=== PATIENT | male | born 1965 | race Caucasian/White ===

== ENCOUNTER 2022-07-18 11:47 | Emergency (ER) | payer OTHER, SELFPAY ==
[2022-07-18 12:15] VITALS: BP 163/94; PULSE 82; RESP 18; TEMP 36.6; O2SAT 99
--- NOTE | 2022-07-18 13:11 | ED.GENADULT ---
HPI - General Adult General Chief complaint: Ear Stated complaint: Bilateral Ear Irritation History of Present Illness HPI narrative: 57 y/o male. PMHx HTN, GERD. Presents to [facility] today with acute complaints of RT ear pain, worsening > the past 48 hours. Client describes a 'muffled' hearing, as well as 'throbbing' pain type sensation. -No falls or auditory trauma. -No dizziness. -No hearing loss or tinnitus. -No fevers, rash, or lesions. He does report to have noticed a bit of yellow discharge, and tells me he often suffers from increased ear wax accumulation. Mild reliefs w/home remedies. No additional acute c/o upon PE. Related Data Home Medications Medication Instructions Recorded Confirmed aspirin 325 mg tablet 325 mg PO DAILY 12/01/19 07/18/22 Allergies Allergy/AdvReac Type Severity Reaction Status Date / Time colchicine AdvReac Intermediate Diarrhea Verified 07/18/22 12:00 Review of Systems Review of Systems: CONSTITUTIONAL: Denies fever, chills, sweats. EYES: Denies visual changes, redness, discharge. ENT: Denies rhinorrhea, congestion, sore throat. + Otalgia RT. CARDIOVASCULAR: Denies chest pain, palpitations, edema. RESPIRATORY: Denies dyspnea, wheezing, cough Remainder of ROS has been reviewed: Negative. [facility] Past Medical History Medical History Arthritis Clawtoe, acquired History of DVT (deep vein thrombosis) Metatarsalgia of right foot Seasonal allergies Surgical History Surgical History History of foot surgery Ross's neuroma x3, done by 3 different providers Family History Family History Mother Hypertension Family history of diabetes mellitus in first degree relative Sibling Patient's sister is in good health Father Family history of lung cancer Patient's father is Other Arthritis Diabetes mellitus Social History Social History Smoking status: Never smoker Second hand tobacco smoke exposure: No Alcohol intake: current Exam Narrative: GENERAL: This is a well-nourished, well-developed adult, in no apparent distress. HEAD: normocephalic, atraumatic. EYES: Sclera clear/white. EARS: External ears normal, RT auditory canal is erythematous, mild cerumen accumulation, no impaction. RT TM bulging. Positive tragus maneuver RT. lt clear and without drainage, TM normal. NOSE: External nose normal. Positive Rhinorrhea, no obstruction, nares patent. THROAT: Mucous membranes moist, posterior pharynx clear. No exudates. NECK: Neck supple, non-tender without lymphadenopathy, masses or thyromegaly. CARDIOVASCULAR: Regular rate and rhythm. RESPIRATORY: Clear to auscultation. Breath sounds equal bilaterally. GASTROINTESTINAL: Abdomen soft. SKIN: warm, intact with no suspicious lesions or rash. NEURO: Alert, active, and age appropriate. Course Course Level of Care: Express Care Visit Vital Signs Vital signs: Vital Signs Temperature 36.6 C 07/18/22 12:15 Pulse Rate 82 07/18/22 12:15 Respiratory Rate 18 07/18/22 12:15 Blood Pressure 163/94 H 07/18/22 12:15 Pulse Oximetry 99 07/18/22 12:15 Oxygen Delivery Room Air 07/18/22 12:15 Temperature 36.6 C 07/18/22 12:15 Pulse Rate 82 07/18/22 12:15 Respiratory Rate 18 07/18/22 12:15 Blood Pressure 163/94 H 07/18/22 12:15 Pulse Oximetry 99 07/18/22 12:15 Oxygen Delivery Room Air 07/18/22 12:15 Procedures Ear Wax Removal Right Ear: Ear Wax Removal Date: 07/18/22 Ear Wax Removal Time: 13:00 Cerumenolytic Used: other (NS ) Results: Re-examined: cerumen removed completely TM Examination: TM(s) erythematous (RT, fully visualized post proceudre, intact) Ear Canal Exa
== END 2022-07-18 12:35 | disposition home or self-care (01) ==
PROVIDERS: Emergency Provider Nurse Practitioner Adult Health; PCP Internal Medicine
DX: H66.91 Otitis media, unspecified, right ear (principal); H61.21 Impacted cerumen, right ear; M19.90 Unspecified osteoarthritis, unspecified site; Z86.718 Personal history of other venous thrombosis and embolism; Z79.82 Long term (current) use of aspirin
CPT/HCPCS: 69209; 99213; G0463

== ENCOUNTER 2022-09-19 16:33 | Outpatient (CLI) | payer OTHER, SELFPAY ==
--- NOTE | ~2022-09-19 | MR_ITS ---
EXAMINATION: MR brain IAC wo/w con DATE: 09/19/2022 17:59 INDICATION: Bilateral sensorineural hearing loss. TECHNIQUE: Magnetic resonance imaging (MRI) of the brain, brainstem, and internal auditory canals was performed without and with 17 mL MultiHance intravenous contrast. COMPARISON: None. FINDINGS: There is an old lacunar infarct in right lentiform nucleus. There is no intracranial hemorr carlene, acute infarction, or abnormal intracranial mass lesion. The ventricles are normal in size. The paranasal sinuses are clear. The orbits are normal. The mastoid air cells are normal. The internal au ditory canals and inner and middle ears are normal. IMPRESSION: 1. 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 Reviewed, dictated and finalized at location A. ER [employer]
== END 2022-09-19 16:34 | disposition home or self-care (01) ==
PROVIDERS: PCP Internal Medicine; Visit Provider Otolaryngology
DX: H90.3 Sensorineural hearing loss, bilateral (principal); H93.13 Tinnitus, bilateral
CPT/HCPCS: 70553; A9577

== ENCOUNTER 2023-05-05 08:15 | Outpatient (CLI) | payer OTHER, SELFPAY | END 2023-05-05 08:16 | disposition home or self-care (01) | PROVIDERS: PCP Internal Medicine; Visit Provider Otolaryngology | DX: H93.19 Tinnitus, unspecified ear (principal); H90.3 Sensorineural hearing loss, bilateral | CPT/HCPCS: 92557; 92567 ==

== ENCOUNTER 2023-08-12 05:16 | Emergency (ER) | payer OTHER, SELFPAY ==
--- NOTE | ~2023-08-12 | XR_ITS ---
Right Shoulder Technique: AP and scapular Y views were obtained. Clinical History: Pain Findings: No fracture or dislocation is seen. Osseous alignment is anatomic. The glenohumeral and acr omioclavicular joint spaces are preserved. Soft tissues are unremarkable. Impression: Unremarkable right shoulder radiographs. Reviewed, dictated and finalized at [facility]. [employer] WORK[employer] Impression: Unremarkable right shoulder radiographs.
[2023-08-12 05:19] VITALS: BP 161/98; PULSE 85; RESP 15; TEMP 36.5; O2SAT 100
--- NOTE | 2023-08-12 05:41 | ED.GENADULT ---
HPI - General Adult General Chief complaint: Extremity Injury, Upper Stated complaint: right shoulder injury Time Seen by Provider: 08/12/23 05:28 History of Present Illness HPI narrative: This is a 58-year-old male presenting ED with chief complaint of right shoulder pain. On Friday the patient was trying to walk up the stairs when he tripped and landed on his right shoulder. Since then he has been having pain in the triceps area and posterior deltoid. It is worse with movement. He has taken Motrin with minimal relief. Patient came in the hospital today because it continues to bother him. Patient denies any other injuries during the fall. Related Data Home Medications Medication Instructions Recorded Confirmed aspirin 325 mg tablet 325 mg PO DAILY 12/01/19 05/07/23 Allergies Allergy/AdvReac Type Severity Reaction Status Date / Time colchicine AdvReac Intermediate Diarrhea Verified 08/12/23 05:28 [facility] Past Medical History Medical History Arthritis Clawtoe, acquired History of DVT (deep vein thrombosis) Metatarsalgia of right foot Seasonal allergies Surgical History Surgical History History of foot surgery Ross's neuroma x3, done by 3 different providers Family History Family History Mother Hypertension Family history of diabetes mellitus in first degree relative Sibling Patient's sister is in good health Father Family history of lung cancer Patient's father is Other Arthritis Diabetes mellitus Social History Social History Smoking status: Never smoker Second hand tobacco smoke exposure: No Alcohol intake: current Substance use: unknown Lack of Transportation: No Lack of Food: Never True Current Housing: I Have Housing Concerned About Future Housing: No Difficulty Paying Gas/Electric Bills: No Difficulty Paying for Meds: No Currently Unemployed: No Education: High School Diploma/GED Difficulty w/ Childcare or Family Care: No Exam Narrative: APPEARANCE: No apparent distress. Head: atraumatic. EYES: EOMI, NOSE: Atraumatic NECK: Trachea midline RESPIRATORY: No increased rate of breathing CARDIOVASCULAR: RRR, ABDOMINAL: Non-distended MUSCULOSKELETAl: Focal exam of the right upper extremity revealed no obvious deformities or overlying skin changes. He does have tenderness to palpation over the right scapula and posterior deltoid. Pulses are +2 in the radial and ulnar distribution. Cremator strength, okay sign and dorsiflexion of the wrist are intact. NEURO: Alert. Moving 4/4 extremities SKIN:: Warm, dry. Normal color PSYCHIATRIC: Normal affect Course Vital Signs Vital signs: Vital Signs Temperature 97.7 F 08/12/23 05:19 Pulse Rate 85 08/12/23 05:19 Respiratory Rate 15 08/12/23 05:19 Blood Pressure 161/98 H 08/12/23 05:19 Pulse Oximetry 100 08/12/23 05:19 Oxygen Delivery Room Air 08/12/23 05:19 Temperature 97.7 F 08/12/23 05:19 Pulse Rate 85 08/12/23 05:19 Respiratory Rate 15 08/12/23 05:19 Blood Pressure 161/98 H 08/12/23 05:19 Pulse Oximetry 100 08/12/23 05:19 Oxygen Delivery Room Air 08/12/23 05:19 Medical Decision Making [facility] Narrative Medical decision making narrative: -Course: 58-year-old male presenting with shoulder pain after a fall. X-ray negative for osseus. Patient treated symptomatically discharged with primary care follow-up. 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
[2023-08-12] MEDS: ACETAMINOPHEN 500 MG TABLET 1000 MG PO (06:08)
[2023-08-12] MEDS: LIDOCAINE 5% PATCH 1 PATCH TRANSDERM (06:08)
[2023-08-12] MEDS: methocarbamoL 750 MG TABLET 1500 MG PO (06:08)
[2023-08-12] MEDS: KETOROLAC 30 MG/ML VIAL (*BKC) 15 MG IM (06:09)
[2023-08-12 06:30] VITALS: BP 158/89; PULSE 82; RESP 16; O2SAT 100
== END 2023-08-12 06:32 | disposition home or self-care (01) ==
PROVIDERS: Emergency Provider Emergency Medicine; PCP Internal Medicine
DX: M25.511 Pain in right shoulder (principal); Z86.718 Personal history of other venous thrombosis and embolism
CPT/HCPCS: 73030; 96372; 99283; A9270; J1885

== ENCOUNTER 2023-08-13 12:20 | Emergency (ER) | payer OTHER, SELFPAY ==
[2023-08-13 12:38] VITALS: BP 149/79; PULSE 96; RESP 18; TEMP 36.5; O2SAT 99
--- NOTE | 2023-08-13 13:36 | ED.UPPEXIN ---
HPI - Extremity Injury (Upper) General Chief Complaint: Extremity Injury, Upper Stated Complaint: right shoulder pain Time Seen by Provider: 08/13/23 13:17 History of Present Illness HPI narrative: 58-year-old male returns to the emergency room for continued right shoulder pain. He was seen yesterday morning following a fall on Friday night. Patient states that he was walking up the stairs, and tripped landing on his right shoulder. Patient states has been experiencing pain on the posterior surface of his shoulder that extends into his bicep. Pain is worse with movement. Reports improvement with his pain when his arm is immobile and he is taking the muscle relaxers. Related Data Home Medications Medication Instructions Recorded Confirmed aspirin 325 mg tablet 325 mg PO DAILY 12/01/19 05/07/23 Allergies Allergy/AdvReac Type Severity Reaction Status Date / Time colchicine AdvReac Intermediate Diarrhea Verified 08/12/23 05:28 Review of Systems Review of Systems: CONSTITUTIONAL: Denies fever, chills, or sweats. EYES: Denies visual changes, redness, or discharge. ENT: Denies rhinorrhea, congestion, sore throat, or otalgia. CARDIOVASCULAR: Denies chest pain, palpitations, or edema. RESPIRATORY: Denies cough or dyspnea. GASTROINTESTINAL: Denies abdominal pain, nausea, vomiting, or diarrhea. GENITOURINARY: Denies dysuria or hematuria. SKIN: Denies rash or itching. MUSCULOSKELETAL: Reports right shoulder pain NEUROLOGIC: Denies headache, numbness, dizziness, or weakness. PSYCHIATRIC: Denies anxiety or depression. [facility] Past Medical History Medical History Arthritis Clawtoe, acquired History of DVT (deep vein thrombosis) Metatarsalgia of right foot Seasonal allergies Surgical History Surgical History History of foot surgery Ross's neuroma x3, done by 3 different providers Family History Family History Mother Hypertension Family history of diabetes mellitus in first degree relative Sibling Patient's sister is in good health Father Family history of lung cancer Patient's father is Other Arthritis Diabetes mellitus Social History Social History Smoking status: Never smoker Second hand tobacco smoke exposure: No Alcohol intake: current Substance use: unknown Lack of Transportation: No Lack of Food: Never True Current Housing: I Have Housing Concerned About Future Housing: No Difficulty Paying Gas/Electric Bills: No Difficulty Paying for Meds: No Currently Unemployed: No Education: High School Diploma/GED Difficulty w/ Childcare or Family Care: No Exam Narrative: GENERAL: Well-appearing, well-nourished, no physical limitations, and in no acute distress. HEAD: Normocephalic, atraumatic. EYES: Conjunctivae normal, PERRLA and EOMI. CHEST: Clear to auscultation. No respiratory distress. No wheezes rales or rhonchi. HEART: Regular rate and rhythm. No murmur heard. Normal peripheral pulses.. EXTREMITIES: Rt Shoulder: No obvious bony abnormalities, ecchymosis noted. No soft tissue swelling. Tenderness over the right scapula, right deltoid, AC joint and right bicep. Positive drop arm test and empty can test. Neurovascular is intact distally SKIN: Warm, dry, no rash. No noted wounds NEURO: No focal deficits. Alert and oriented x3. MAEW. CN's II-XI intact bilaterally, normal gait PSYCH: Cooperative. Normal mood and affect. Course Vital Signs Vital signs: Vital Signs Temperature 36.5 C 08/13/23 12:38 Pulse Rate 96 08/13/23 12:38 Respiratory Rate 18 08/13/23 12:38 Blood Pressure 149/79 H 08/13/23 12:38 Pulse Oximetry 99 08/13/23 12:38 Temperature 36.5 C 08/13/23 12:38 Pulse Rate 96 08/13/23 12:
[2023-08-13] MEDS: KETOROLAC (*BKC) 60 MG/2 ML VIAL IM (13:52)
== END 2023-08-13 14:02 | disposition home or self-care (01) ==
PROVIDERS: Emergency Provider Nurse Practitioner Family; PCP Internal Medicine
DX: S49.91XA Unspecified injury of right shoulder and upper arm, initial encounter (principal); M19.90 Unspecified osteoarthritis, unspecified site; Z86.718 Personal history of other venous thrombosis and embolism; W10.9XXA Fall (on) (from) unspecified stairs and steps, initial encounter
CPT/HCPCS: 96372; 99283; A4565; J1885

== ENCOUNTER 2023-10-15 15:08 | Outpatient (CLI) | payer OTHER, SELFPAY ==
--- NOTE | 2023-10-15 15:29 | ECG_ITS ---
Measurements Intervals [place] Rate: 87 P: 19 [place]: 151 QRS: 2 QRSD: 104 T: 3 QT: 344 QTc: 415 Interpretive Statements SINUS RHYTHM POOR R WAVE PROGRESSION, ANTERIOR LEADS INFERIOR INFARCT, AGE INDETERMINATE ABNORMAL ECG COMPARED TO ECG 08/05/2019 14:23:28 MYOCARDIAL INFARCT FINDING NOW PRESENT Electronically Signed On 10-15-2023 16:11:57 PERSONALIZATION SPECIALIST by Charles Thorpe D.O.
== END 2023-10-15 15:09 | disposition home or self-care (01) ==
LOC: ANHSURGERY 15:15
PROVIDERS: PCP Internal Medicine; Visit Provider Otolaryngology
DX: Z01.818 Encounter for other preprocedural examination (principal); R94.31 Abnormal electrocardiogram [ECG] [EKG]; R93.1 Abnormal findings on diagnostic imaging of heart and coronary circulation; I10 Essential (primary) hypertension
CPT/HCPCS: 93005

== ENCOUNTER 2023-10-21 00:12 | Day surgery (SDC) | payer OTHER, SELFPAY ==
[2023-10-13 10:17] VITALS: BMI 32.1
--- NOTE | 2023-10-13 10:33 | PC.NURSE ---
Report to the Outpatient Waiting Room, entrance under the green pavilion located off [facility], at 1230 on 10/21/23. Planned Procedure Time: 1430. Time changes happen often and if your time is changed the preop area will call you the afternoon before. - You and your visitor will be asked to self-screen and do not enter if you have any COVID symptoms. - A mask is optional within the hospital at this time. Patients may have clear liquids (water, carbonated beverages, clear teas, apple juice) until 3 hours prior to surgery with a maximum of 20 ounces. - No food from midnight until time of surgery Take the following medications with a SIP of water the morning of surgery: Pantoprazole DO NOT STOP ANY OF YOUR OTHER PRESCRIPTION MEDICATIONS PRIOR TO SURGERY ?EXCEPT THE FOLLOWING Medications to discontinue per physician CONTACT DR. ROBBINS/DR. SHARP REGARDING IF AND WHEN TO STOP ASPIRIN Date to take last dose PER MD INSTRUCTION Please no make-up, nail citizen of [place], hairspray, perfume, deodorant, or body powder the day of surgery. No jewelry (including any body piercings) or valuables the day of surgery, leave them at home. Please take a shower or bath the night before, or the morning of, surgery with an antibacterial soap. Wear comfortable, loose fitting clothing. - Jewelry must be removed prior to entering the operating room. Rings and piercings that are not removed may be cut off. - The hospital will not accept responsibility for valuables. - Please leave all valuables, including medications, at home the day of surgery. If you are going home after surgery, a licensed cdl bulk driver must drive you home. - NO public transportation without another adult if you receive anesthesia. - We recommend that an adult stay with you for 24 hours following discharge. - We also recommend that you do not drive, make important decision, drink alcoholic beverages, or take any drugs that were not prescribed by your health care provider for at least 24 hours after your discharge time. Follow any additional instructions given to you from your surgeon. If you or anyone in your household have experienced Covid symptoms in the past week, please notify your surgeon or the nurse liaison at the phone number below for possible testing. Telephone instructions given to patient and asked if any additional questions and then verbalized understanding. Patient advised to call surgeon office or pre surgery nurse liaison [phone] if any additional questions.
--- NOTE | 2023-10-19 14:58 | PM.IMHP ---
H&P: HPI History of Present Illness Date/Time: 10/19/23 14:58 Chief Complaint: Left pigmented ear canal lesion Narrative: Planned surgical procedure Review of Systems Review of Systems: All systems reviewed & are unremarkable except as noted in HPI and below PMFSH Past Medical History Medical History Arthritis Clawtoe, acquired History of DVT (deep vein thrombosis) Metatarsalgia of right foot Seasonal allergies Strain of rotator cuff Surgical History Surgical History History of foot surgery Ross's neuroma x3, done by 3 different providers Family History Family History Mother Hypertension Family history of diabetes mellitus in first degree relative Sibling Patient's sister is in good health Father Family history of lung cancer Patient's father is Other Arthritis Diabetes mellitus Social History Social History Smoking status: Never smoker Second hand tobacco smoke exposure: No Alcohol intake: never Substance use: never Lack of Transportation: No Lack of Food: Never True Current Housing: I Have Housing Concerned About Future Housing: No Difficulty Paying Gas/Electric Bills: No Difficulty Paying for Meds: No Currently Unemployed: No Education: High School Diploma/GED Difficulty w/ Childcare or Family Care: No Living arrangements: alone Spiritual care concerns: No Meds Home Medications and Allergies Home Medications Medication Instructions Recorded Confirmed Type sildenafil 100 mg tablet 100 mg PO DAILY PRN sexual 09/01/22 10/13/23 Rx activity #20 tabs pantoprazole 40 mg tablet,delayed 40 mg PO QAM #90 tabs 05/17/23 10/13/23 Rx release amitriptyline 50 mg tablet 50 mg PO QHS PRN insomnia #90 tabs 06/09/23 10/13/23 Rx lisinopril 40 mg tablet 40 mg PO DAILY #90 tabs 07/20/23 10/13/23 Rx aspirin 81 mg tablet,delayed 81 mg PO DAILY 08/18/23 10/13/23 History release (Adult Aspirin Regimen) mupirocin 2 % topical ointment 1 applic topical BID #22 grams 09/22/23 10/13/23 Rx Allergies Allergy/AdvReac Type Severity Reaction Status Date / Time colchicine AdvReac Intermediate Diarrhea Verified 10/13/23 10:11 Exam Narrative: Left pigmented ear canal lesion Assessment and Plan Assessment and plan (1) Lesion of ear canal: Code(s): H61.899 - Other specified disorders of external ear, unspecified ear Status: Acute Assessment and Plan: OR excisional biopsy of left ear canal lesion ear/exam under anesthesia.? LMA okay.? Risks were discussed include bleeding infection damage to surrounding structures need for further procedures.? Failure to obtain diagnosis.? Patient voiced understanding of these risks and agreed. Possible post operative infection, bleeding, stenosis of the ear canal and need for further procedure/referral to neurootologist if malignant pathology.
--- NOTE | 2023-10-20 15:27 | WPDANESEPPF ---
Anes - Initial Pre Proc Eval Procedure: Operation Date: 10/21/23 08:30 Proposed Procedures p Left Ear Examination with Biopsy of Ear Canal - Angel Santillan MD Date/Time: 10/20/23 15:27 Surgeon: Angel Santillan MD Pre Op Diagnosis: left ear canal lesion Patient Data Age: 58 Gender: M Height: 1.63 m Weight: 84.82 kg Allergies Allergy/AdvReac Type Severity Reaction Status Date / Time colchicine AdvReac Intermediate Diarrhea Verified 10/21/23 07:30 Home Medications Medication Instructions Recorded Confirmed Type sildenafil 100 mg tablet 100 mg PO DAILY PRN sexual 09/01/22 10/21/23 Rx activity #20 tabs pantoprazole 40 mg tablet,delayed 40 mg PO QAM #90 tabs 05/17/23 10/21/23 Rx release amitriptyline 50 mg tablet 50 mg PO QHS PRN insomnia #90 tabs 06/09/23 10/21/23 Rx lisinopril 40 mg tablet 40 mg PO DAILY #90 tabs 07/20/23 10/21/23 Rx aspirin 81 mg tablet,delayed 81 mg PO DAILY 08/18/23 10/21/23 History release (Adult Aspirin Regimen) mupirocin 2 % topical ointment 1 applic topical BID #22 grams 09/22/23 10/21/23 Rx Patient hx anesthesia problems: none Family hx anesthesia problems: none Results Review: All pre-operative results and documents have been reviewed as part of the pre-operative evaluation. [facility] Past Medical History Medical History (Updated 10/20/23 @ 15:27 by Amadou Gonzalez DO) Arthritis Clawtoe, acquired Esophageal reflux disease Essential (primary) hypertension History of DVT (deep vein thrombosis) Metatarsalgia of right foot Seasonal allergies Strain of rotator cuff Surgical History Surgical History History of foot surgery Ross's neuroma x3, done by 3 different providers Family History Family History Mother Hypertension Family history of diabetes mellitus in first degree relative Sibling Patient's sister is in good health Father Family history of lung cancer Patient's father is Other Arthritis Diabetes mellitus Social History Social History (Reviewed 12/18/23 @ 09:07 by Ashtyn Guan [facility]) Smoking status: Never smoker Second hand tobacco smoke exposure: No Alcohol intake: never Substance use: never Lack of Transportation: No Lack of Food: Never True Current Housing: I Have Housing Concerned About Future Housing: No Difficulty Paying Gas/Electric Bills: No Difficulty Paying for Meds: No Currently Unemployed: No Education: High School Diploma/GED Difficulty w/ Childcare or Family Care: No Living arrangements: alone Spiritual care concerns: No Anes - Eval Final PreProcedure Day of Procedure 10/20/23 15:27 Patient weight: overweight Heart: regular rate and rhythm Lungs: clear to auscultation Airway: Mallampati scale class II Neurological: alert and oriented Last oral intake: >/= 8 hours ASA classification: III Emergent: no Anesthetic plan: proceed Anesthesia type and monitoring: general LMA and standard monitoring Results Review: All pre-operative results and documents have been reviewed as part of the pre-operative evaluation. Informed Consent: The patient's anesthetic plan and its attendant risks and benefits were discussed with the patient/family/POA. Questions were solicited and answers provided to the satisfaction of the patient/family/POA.
[2023-10-21] VITALS (8 sets, daily range): BP systolic 94–132; BP diastolic 76–88; PULSE 64–88; RESP 15–20; TEMP 36.6–36.8; O2SAT 93–100
[2023-10-21] MEDS: LACTATED RINGERS 1,000 ML 30 ML IV CONT ×2 (07:15→09:35)
--- NOTE | 2023-10-21 08:43 | WPDHPUPDATE1 ---
History and Physical Update Update Date/Time: 10/21/23 08:43 History and Physical has been reviewed, including an updated exam of the patient. There are NO changes in the patient's condition. Risks, benefits, and alternatives have been discussed and questions answered. Patient agrees to proceed with procedure.
[2023-10-21] MEDS: ceFAZolin 2 GM/D5W 50 ML 2 GM/50 ML BAG IVPB (08:53)
[2023-10-21] MEDS: LIDO 1%/EPINEPHRINE 1:100,000 50 ML VIAL INFILTRATE (09:12)
[2023-10-21] MEDS: OXYMETAZOLINE HCL 0.05% NAS 15 ML BTL (*BKC) 1 SPRAY NASAL (09:19)
[2023-10-21] MEDS: NEOMYCIN/POLYMYXIN B/PRAMOXINE 15 GM CREAM 1 APPLIC TOPICAL (09:27)
[2023-10-21] MEDS: GELATIN SPONGE 12-7MM 1 EACH TOPICAL (09:29)
--- NOTE | 2023-10-21 09:33 | SUR.OPER ---
specimen sent with HONG Vidales and received in pathology by Lo
--- NOTE | 2023-10-21 09:53 | P.OP_ITS ---
Procedure Note - Detailed Date of Procedure 10/21/23 Pre-op Diagnosis left ear canal lesion Post-op Diagnosis Same Procedure Performed Right-sided ear exam under anesthesia anesthesia with excisional biopsy Surgeon Angel Santillan MD Anesthesia General Indications See above Findings pigmented lesion only a couple mm across by 2 x 3 excised with a rim of the pigment left should be a malignancy. Minimal bleeding. Description of Procedure Patient identified consent verified. Patient brought to the OR. Time-out performed. General anesthesia induced LMA secured. Patient prepped draped position procedure confirmed 2nd time-out performed. Ear examined pigmented lesion probably measuring 3 x 4 mm. This was injected 4 quadrants around with 1% lidocaine 1 100,000 parts epinephrine 0.25 cc. ROM blade utilized to excise the lesion I left a rim of pigment in tissue should this be a melanoma for the neuro school coordinator in [place] to excised in totality. Lesion sent for pathologic analysis. Bleeding controlled with 3 applications of Afrin-soaked cotton ball. Ointment placed against the operative site a Band-Aid were small portion of Gelfoam placed against this. Patient tolerated the procedure well no complications blood loss 1 cc. Care the patient given back to Anesthesiology. I performed all dictated portions of procedure. Patient taken to PACU. Estimated Blood Loss 1 Packing Yes (Gelfoam) Pathology Yes Complications No immediate complications Condition Stable Disposition PACU [facility] Billing Surgery - Charge Forward: Surgery Billing
== END 2023-10-21 11:08 | disposition home or self-care (01) ==
PROVIDERS: PCP Internal Medicine; Visit Provider Otolaryngology
PROC: (CPT 92502; principal; 2023-10-21 08:30)
DX: H61.892 Other specified disorders of left external ear (principal); I10 Essential (primary) hypertension; K21.9 Gastro-esophageal reflux disease without esophagitis; J30.2 Other seasonal allergic rhinitis; Z79.82 Long term (current) use of aspirin; Z98.890 Other specified postprocedural states; Z86.718 Personal history of other venous thrombosis and embolism; Z80.1 Family history of malignant neoplasm of trachea, bronchus and lung
CPT/HCPCS: 69105; 88305; 93005; A9270; J0690; J1100; J2250; J2371; J2405; J2704; J3010; J7120

== ENCOUNTER 2024-05-31 07:42 | Outpatient (CLI) | payer OTHER, SELFPAY ==
--- NOTE | ~2024-05-31 | US_ITS ---
EXAMINATION: US renal BI DATE: 05/31/2024 08:45 INDICATION: Stage IIIB chronic kidney disease TECHNIQUE: Multiple ultrasound grayscale images of the kidneys were obtained. COMPARISON: None. FINDINGS: The right kidney measures 10.6 x 5.7 x 4.7 cm. The left kidney measures 9.6 x 5.2 x 5.7 cm. The kidne ys demonstrate normal echogenicity. 2.3 similar anechoic cyst at the upper pole of the left kidney. T here is no hydronephrosis in either kidney. No stones identified. The bladder is normal with bilater al ureteral jets visualized on color Doppler. IMPRESSION: 1. Normal kidneys without hydronephrosis. Reviewed, dictated and finalized at location A.
== END 2024-05-31 07:43 | disposition home or self-care (01) ==
PROVIDERS: PCP Internal Medicine; Visit Provider Internal Medicine Nephrology
DX: I12.9 Hypertensive chronic kidney disease with stage 1 through stage 4 chronic kidney disease, or unspecified chronic kidney disease (principal); N18.32 Chronic kidney disease, stage 3b
CPT/HCPCS: 76775

== ENCOUNTER 2024-07-06 12:45 | Emergency (ER) | payer OTHER, SELFPAY ==
[2024-07-06 12:59] VITALS: BP 159/77; PULSE 96; RESP 18; TEMP 38.4; O2SAT 100
[2024-07-06 13:15] LABS: EDCOVIDSCREEN Positive (Negative)
--- NOTE | 2024-07-06 13:15 | ED.URI ---
HPI - URI/Sore Throat General Chief Complaint: Upper Respiratory Infection Stated Complaint: COVID Source: patient and RN notes reviewed Mode of arrival: ambulatory Limitations: no limitations History of Present Illness HPI Narrative: 59-year-old male with hx CKD, HTN presented for complaint of headache, sore throat, body aches, sinus pressure/congestion, cough, fever/chills. Onset 0200 today. He tested positive for COVID twice this morning at home. Denies sob, wheezing, n/v/d. Not taking anything for symptoms. MD elicited complaint: cough Related Data Home Medications Medication Instructions Recorded Confirmed aspirin 81 mg tablet,delayed 81 mg PO DAILY 08/18/23 07/06/24 release (Adult Aspirin Regimen) Allergies Allergy/AdvReac Type Severity Reaction Status Date / Time colchicine AdvReac Intermediate Diarrhea Verified 05/13/24 13:44 Review of Systems Review of Systems: CONSTITUTIONAL: Endorses malaise, chills, sweats, fever EYES: Denies visual changes, redness, or discharge ENT: Reports rhinorrhea, congestion, denies sinus pain, otalgia, sore throat CARDIOVASCULAR: Denies chest pain, palpitations, edema RESPIRATORY: Reports cough, post nasal drainage. Denies dyspnea GASTROINTESTINAL: Denies abdominal pain, nausea, vomiting, diarrhea SKIN: Denies rash or itching MUSCULOSKELETAL: Endorses myalgia NEUROLOGIC: endorses headache PMFSH Past Medical History Medical History Arthritis Clawtoe, acquired Esophageal reflux disease Essential (primary) hypertension History of DVT (deep vein thrombosis) Metatarsalgia of right foot Seasonal allergies Strain of rotator cuff Surgical History Surgical History History of foot surgery Ross's neuroma x3, done by 3 different providers Family History Family History Mother Hypertension Family history of diabetes mellitus in first degree relative Sibling Patient's sister is in good health Father Family history of lung cancer Patient's father is Other Arthritis Diabetes mellitus Social History Social History Smoking status: Never smoker Second hand tobacco smoke exposure: No Alcohol intake: never Substance use: never Do You Feel Safe in your Home?: Yes Lack of Transportation: No Lack of Food: Never True Current Housing: I Have Housing Concerned About Future Housing: No Difficulty Paying Gas/Electric Bills: No Difficulty Paying for Meds: No Currently Unemployed: No Education: High School Diploma/GED Difficulty w/ Childcare or Family Care: No Living arrangements: alone Gender identity (if verbalized by the patient): Male Spiritual care concerns: No Exam Narrative: GENERAL: Mildly Ill-appearing, nontoxic no acute distress. EYES: conjunctivae clear ENT: Mucous membranes moist. TM pearly taylor with dull light reflex bilaterally; no tragal tenderness. Oropharynx erythematous without lesions or exudate, no drooling, no hoarseness, no trismus, uvula midline. No tripod positioning, muffled voice, soft palate or pharyngeal wall bulging NECK: Supple. No lymphadenopathy CHEST: Clear to auscultation, breath sounds equal. No wheezing, rhonchi, rales, or stridor. No respiratory distress, speaks in full sentences. HEART: Regular rate and rhythm. No murmur heard. SKIN: Warm, dry NEURO: Alert and oriented x3. PSYCH: Normal mood and affect Course Course Emergency Course: Patient is aware of diagnosis, understands and agrees to treatment plan. Anticipatory guidance given. Patient agrees to follow-up as directed and is aware of reasons to seek care at the emergency department. Portions of this record may have been created with voice recognition software Level of Care: Express Car
== END 2024-07-06 13:37 | disposition home or self-care (01) ==
PROVIDERS: Emergency Provider Nurse Practitioner Family
DX: U07.1 COVID-19 (principal); I12.9 Hypertensive chronic kidney disease with stage 1 through stage 4 chronic kidney disease, or unspecified chronic kidney disease; N18.9 Chronic kidney disease, unspecified; M19.90 Unspecified osteoarthritis, unspecified site; K21.9 Gastro-esophageal reflux disease without esophagitis; Z86.718 Personal history of other venous thrombosis and embolism; Z79.82 Long term (current) use of aspirin
CPT/HCPCS: 87426; 99212; G0463

== ENCOUNTER 2024-12-01 11:44 | Emergency (ER) | payer OTHER, SELFPAY ==
--- NOTE | ~2024-12-01 | XR_ITS ---
EXAMINATION: XR chest 2V DATE: 12/01/2024 12:28 INDICATION: Cough and crackles. Chest pain with cough. TECHNIQUE: Frontal and lateral views of the chest were obtained. COMPARISON: Chest 2 views 07/19/2014 FINDINGS: There is mild atelectasis in left lower lung zone. No pleural effusion or pneumothorax. The heart size is normal. Surgical clips in the right upper quadrant are likely from cholecystectomy. IMPRESSION: 1. Mild atelectasis in left lower lung zone. Reviewed, dictated and finalized at location A. [employer]
[2024-12-01 11:56] VITALS: BP 90/61; PULSE 85; RESP 16; TEMP 37.5; O2SAT 98
--- NOTE | 2024-12-01 12:04 | ED_ITS ---
HPI - URI/Sore Throat General Chief Complaint: Upper Respiratory Infection Stated Complaint: dizzy,weak,cough,LEMOS Time Seen by Provider: 12/01/24 12:00 Source: patient Mode of arrival: ambulatory Limitations: no limitations History of Present Illness HPI Narrative: Pk is a 59-year-old male patient presenting to the clinic today complaints of dizziness, weakness, sore throat , headache, chest discomfort with cough times 2 days. His blood pressure is low in the clinic today. States he held his blood pressure medication today. Has felt feverish. Temperature is 37.5? in the clinic today. Denies any shortness of breath. Contacted his PCP and they sent him here for COVID test. MD elicited complaint: sore throat and nasal congestion Related Data Home Medications ?Medication ?Instructions ?Recorded ?Confirmed ?Last Taken ?Type aspirin 81 mg tablet,delayed 81 mg PO DAILY 08/18/23 08/31/24 Unknown History release (Adult Aspirin Regimen) Allergies Allergy/AdvReac Type Severity Reaction Status Date / Time colchicine AdvReac Intermediate Diarrhea Verified 12/01/24 11:48 Review of Systems Review of Systems: Pertinent positives per HPI. Patient denies any rash, visual changes, dizziness, palpitations, nausea, vomiting, diarrhea, constipation, abdominal pain, or any urinary issues. [facility] Past Medical History Medical History (Updated 12/01/24 @ 12:48 by Mitul Dooley APRN) BMI 31.0-31.9,adult Viral gastroenteritis Tinea cruris Testicular mass Personal history of colonic polyps Painful mouth Painful ejaculation Other fatigue HSV-1 infection Gout, unspecified Gastro-esophageal reflux disease without esophagitis Dizziness Dietary counseling and surveillance (06/02/17) Aphthous ulcer of mouth Strain of rotator cuff Clawtoe, acquired Metatarsalgia of right foot History of DVT (deep vein thrombosis) Seasonal allergies Arthritis Esophageal reflux disease Essential (primary) hypertension Surgical History Surgical History History of foot surgery Ross's neuroma x3, done by 3 different providers Family History Family History Mother Hypertension Family history of diabetes mellitus in first degree relative Sibling Patient's sister is in good health Father Family history of lung cancer Patient's father is Other Arthritis Diabetes mellitus Social History Social History Smoking status: Never smoker Second hand tobacco smoke exposure: No Alcohol intake: current Substance use: never Substance use type: does not use Do You Feel Safe in your Home?: Yes Lack of Transportation: No Lack of Food: Never True Current Housing: I Have Housing Concerned About Future Housing: No Difficulty Paying Gas/Electric Bills: No Difficulty Paying for Meds: No Currently Unemployed: No Education: High School Diploma/GED Difficulty w/ Childcare or Family Care: No Living arrangements: alone Occupation/Education: occupation Additional occupation/education comments: [employer] Gender identity (if verbalized by the patient): Male Spiritual care concerns: No Comments At the time of my signature, I reviewed and agree with the nursing past medical, surgical, social, and family history. There is no relevant family history pertinent to the patient complaint. Exam Narrative: General: Well-developed, well nourished, in no apparent distress Head: Normocephalic, atraumatic Eyes: Pupils equally round and reactive to light bilaterally, EOM intact, sclera and conjunctive clear, no discharge, lids normal Ears: TMs intact and congested, ear canals clear, no drainage, grossly hearing normal. Nose: Nares patent, clear discharge, no inflammation, no sinus tenderness. Mouth: Oral pharynx without lesions or masses, good dentition, MMM. Neck: Supple, trachea midline, no enlargement of anterior or posterior cervical nodes, no thyroid masses or goiter palpable. Cardio: Regular rate and rhythm, s1 and s2 normal, no murmur appreciated. Resp: Crackles in bilateral lower lobes, no rhonchi, rales, wheezing or rubs Course Course Emergency Course: Portions of this record may have been created with voice recognition software. Level of Care: Express Care Visit Vital Signs Vital signs: Vital Signs Temperature 37.5 C 12/01/24 11:56 Pulse Rate 85 12/01/24 11:56 Respiratory Rate 16 12/01/24 11:56 Blood Pressure 90/61 L 12/01/24 11:56 Pulse Oximetry 98 12/01/24 11:56 Oxygen Delivery Room Air 12/01/24 11:56 Temperature 37.5 C 12/01/24 11:56 Pulse Rate 85 12/01/24 11:56 Respiratory Rate 16 12/01/24 11:56 Blood Pressure 90/61 L 12/01/24 11:56 Pulse Oximetry 98 12/01/24 11:56 Oxygen Delivery Room Air 12/01/24 11:56 Vital signs reviewed MDM - URI/Sore Throat MDM Narrative Medical decision making narrative: At the time of visit patient is resting comfortably on the exam table. Patient appears to be nontoxic. Labs: COVID testing was negative. Influenza A testing was positive. Diagnostics: Chest x-ray: Mild atelectasis to the left lower lung zone Plan: Patient has influenza A. Will send over prescription for albuterol inhaler and Tamiflu. Work note was given. Discussed patient's low blood pressure and what medications to hold while his blood pressure is low. Supportive measures were discussed with the patient and they voiced understanding discharge instructions and agrees to treatment plan. Return precautions reviewed Differential Diagnosis Differential diagnosis: Likely upper respiratory infection, otitis media, sinusitis, viral infection, bronchitis, influenza, pharyngitis and other (COVID) Lab Data Labs: Lab Results 12/01/24 Range/Units 12:10 POC Influenza A Ag Positive (Negative) POC Influenza B Ag Negative (Negative) POC SARS CoV-2 Ag Negative (Negative) Imaging Data Radiologist's impression: ITS Impressions Chest X-Ray 12/01/24 12:39 IMPRESSION: 1. Mild atelectasis in left lower lung zone. Discharge Plan Discharge Clinical Impression: Influenza A, Atelectasis of left lung Patient Disposition: Home, Self-Care Condition: Stable Instructions: Antibiotic Form, Influenza (ED), Atelectasis (ED) Additional Instructions: Influenza A testing was positive in the clinic today. COVID testing was negative Chest x-ray was performed and shows mild left lower atelectasis-no sign of pneumonia. Take prescription medications only as prescribed- albuterol inhaler and tamiflu Hold taking your blood pressure medications and sildenafil medication until your systolic blood pressure (top number) is above 110. May take Coricidin HBP for cold/flu symptoms May take Mucinex for cough Increase fluids and stay well hydrated Tylenol/motrin for pain/fever Flonase and OTC antihistamines as directed Vicks vapor rub to open sinuses Sinus rinses for congestion Cepacol spray, cough drops, throat lozenges, warm tea with honey/lemon, gargle salt water to soothe throat BRAT diet for diarrhea Clear liquids x 24 hours then advance as tolerated for nausea/vomiting Go to the ED if you develop a worsening in your condition- high fever not controlled by Tylenol or Motrin, dehydration, weakness, lethargy, shortness of breath, or chest pain. Follow up with your PCP in 3-5 days if symptoms persist. Patient Language: Japanese Prescriptions: New oseltamivir [Tamiflu] 75 mg capsule 75 mg PO Q12H 5 Days Qty: 10 0RF albuterol sulfate 90 mcg/actuation HFA aerosol inhaler 2 puff inhalation Q4-6H PRN (Reason: shortness of breath or wheezing) 30 Days Qty: 8.5 0RF No Action aspirin [Adult Aspirin Regimen] 81 mg tablet,delayed release (DR/EC) 81 mg PO DAILY amitriptyline 100 mg tablet 100 mg PO QHS Qty: 30 3RF sildenafil 100 mg tablet 100 mg PO DAILY PRN (Reason: sexual activity) Qty: 20 4RF Rx Instructions: administer 30 minutes to 4 hours before activity lisinopril 40 mg tablet 40 mg PO DAILY Qty: 90 2RF Follow-up/Referrals: Wilner Macedo DO [Primary Care Provider] - Stand Alone Forms: Work/School Release IP Time of Disposition: 12:46 Quality NIHSS Nursing Documentation ED NIHSS nursing documentation: reviewed/agree
[2024-12-01 12:52] LABS: EDCOVIDSCREEN Negative (Negative)
[2024-12-01 12:53] LABS: EDINFLUASCREEN Positive (Negative); EDINFLUBSCREEN Negative (Negative)
== END 2024-12-01 12:52 | disposition home or self-care (01) ==
PROVIDERS: Emergency Provider Nurse Practitioner Family; PCP Internal Medicine
DX: J10.1 Influenza due to other identified influenza virus with other respiratory manifestations (principal); J98.11 Atelectasis; Z20.822 Contact with and (suspected) exposure to COVID-19; I10 Essential (primary) hypertension; M10.9 Gout, unspecified; K21.9 Gastro-esophageal reflux disease without esophagitis; M19.90 Unspecified osteoarthritis, unspecified site; Z86.718 Personal history of other venous thrombosis and embolism; Z79.82 Long term (current) use of aspirin
CPT/HCPCS: 71046; 87426; 87804; 99213; G0463